=== PATIENT | male | born 1940 | race Caucasian/White ===

== ENCOUNTER 2023-05-27 09:08 | Emergency (ER) | payer OTHER ==
[~2023-05-27] VITALS: Ht 165.1 cm; Wt 59.0 kg
[2023-05-27 10:01] LABS: BASOPHILS ABSOLUTE AUTO 0.06 K/mm3 (0.00-0.23); BASOPHILS PERCENT AUTO 0 % (0-2); EOSINOPHILS ABSOLUTE AUTO 0.08 K/mm3 (0.00-0.68); EOSINOPHILS PERCENT AUTO 0 % (0-6); Hematocrit 41.2 % (37.0-53.0); Hemoglobin 13.5 g/dL (13.5-17.5); IMMATURE GRAN ABSOLUTE AUTO 0.11 K/mm3 (0.00-0.10); IMMATURE GRAN PERCENT AUTO 1 % (0-1); LYMPHOCYTES ABSOLUTE AUTO 0.79 K/mm3 (0.84-5.20); LYMPHOCYTES PERCENT AUTO 4 % (21-46); MONOCYTES ABSOLUTE AUTO 1.48 K/mm3 (0.16-1.47); MONOCYTES PERCENT AUTO 8 % (4-13); Mean Corpuscular HGB Conc 32.8 g/dL (31.5-36.5); Mean Corpuscular Volume 92 fL (80-100); Mean Platelet Volume 11.7 fL (9.1-12.4); NEUTROPHILS ABSOLUTE AUTO 16.69 K/mm3 (1.96-9.15); NEUTROPHILS PERCENT AUTO 87 % (41-73); Platelet Count 367 K/mm3 (150-400); RDW Coefficient Variation 13.2 % (11.7-14.2); RDW Standard Deviation 44.6 fL (35.1-46.3); White Blood Cell Count 19.21 K/mm3 (4.00-11.30)
[2023-05-27 11:12] LABS: Bun/Creatinine Ratio 22.6 (12.0-20.0); Calcium, Blood 8.8 mg/dL (8.5-10.1); Creatinine, Blood 0.62 mg/dL (0.60-1.20)
[2023-05-27 11:32] LABS: Potassium, Blood 5.5 mmol/L (3.5-5.5)
[2023-05-27 11:36] LABS: International Normalized Ratio 1.17; Prothrombin Time Results 12.2 Sec (9.7-11.5)
[2023-05-27 13:15] VITALS: BP 128/72
== END 2023-05-27 13:38 | disposition short-term general hospital (02) ==
LOC: ER 09:08
PROVIDERS: Student in an Organized Health Care Education/Training Program
DX: S06.5X0A Traumatic subdural hemorrhage without loss of consciousness, initial encounter (principal); S70.01XA Contusion of right hip, initial encounter; E86.0 Dehydration; W01.0XXA Fall on same level from slipping, tripping and stumbling without subsequent striking against object, initial encounter; Z79.82 Long term (current) use of aspirin; Z79.899 Other long term (current) drug therapy; I10 Essential (primary) hypertension; E78.00 Pure hypercholesterolemia, unspecified; Z87.891 Personal history of nicotine dependence
CPT/HCPCS: 70450; 72125; 73502; 80048; 82550; 85025; 85610; 85730; 86850; 86900; 86901; 93005; 93010; 99285-25

== ENCOUNTER 2023-07-06 08:00 | Day surgery (SDC) | payer OTHER | END 2023-07-06 23:59 | disposition home or self-care (01) | LOC: WOUND 08:00 | DX: L89.154 Pressure ulcer of sacral region, stage 4 (principal); L89.100 Pressure ulcer of unspecified part of back, unstageable; S06.5XAD Traumatic subdural hemorrhage with loss of consciousness status unknown, subsequent encounter; I82.432 Acute embolism and thrombosis of left popliteal vein; I82.451 Acute embolism and thrombosis of right peroneal vein; I82.813 Embolism and thrombosis of superficial veins of lower extremities, bilateral | CPT/HCPCS: G0463 ==

== ENCOUNTER 2023-07-21 00:47 | Day surgery (SDC) | payer OTHER, MEDICARE | END 2023-07-21 22:45 | disposition home or self-care (01) | LOC: WOUND 00:47 | DX: L89.102 Pressure ulcer of unspecified part of back, stage 2 (principal); L89.154 Pressure ulcer of sacral region, stage 4; L89.892 Pressure ulcer of other site, stage 2; I82.432 Acute embolism and thrombosis of left popliteal vein; I82.451 Acute embolism and thrombosis of right peroneal vein; I82.813 Embolism and thrombosis of superficial veins of lower extremities, bilateral | CPT/HCPCS: A9270; G0463 ==

== ENCOUNTER 2023-07-28 00:52 | Day surgery (SDC) | payer OTHER | END 2023-07-28 23:09 | disposition home or self-care (01) | LOC: WOUND 00:52 | DX: L89.154 Pressure ulcer of sacral region, stage 4 (principal); L89.102 Pressure ulcer of unspecified part of back, stage 2; L89.892 Pressure ulcer of other site, stage 2; L89.512 Pressure ulcer of right ankle, stage 2; L89.610 Pressure ulcer of right heel, unstageable; S06.5XAD Traumatic subdural hemorrhage with loss of consciousness status unknown, subsequent encounter; I82.432 Acute embolism and thrombosis of left popliteal vein; I82.451 Acute embolism and thrombosis of right peroneal vein; I82.813 Embolism and thrombosis of superficial veins of lower extremities, bilateral | CPT/HCPCS: G0463 ==

== ENCOUNTER 2023-08-18 00:32 | Day surgery (SDC) | payer OTHER | END 2023-08-18 22:44 | disposition home or self-care (01) | LOC: WOUND 00:32 | DX: L89.154 Pressure ulcer of sacral region, stage 4 (principal); L89.102 Pressure ulcer of unspecified part of back, stage 2; L89.893 Pressure ulcer of other site, stage 3; L89.892 Pressure ulcer of other site, stage 2; L89.512 Pressure ulcer of right ankle, stage 2; I82.432 Acute embolism and thrombosis of left popliteal vein; I82.451 Acute embolism and thrombosis of right peroneal vein; I82.813 Embolism and thrombosis of superficial veins of lower extremities, bilateral | CPT/HCPCS: A9270; G0463 ==

== ENCOUNTER 2023-09-01 05:08 | Day surgery (SDC) | payer OTHER | END 2023-09-01 22:37 | disposition home or self-care (01) | LOC: WOUND 05:08 | DX: I82.433 Acute embolism and thrombosis of popliteal vein, bilateral (principal); I82.813 Embolism and thrombosis of superficial veins of lower extremities, bilateral; L89.154 Pressure ulcer of sacral region, stage 4; L89.893 Pressure ulcer of other site, stage 3; L89.512 Pressure ulcer of right ankle, stage 2; L89.620 Pressure ulcer of left heel, unstageable; L89.610 Pressure ulcer of right heel, unstageable | CPT/HCPCS: A9270; G0463 ==

== ENCOUNTER 2023-09-08 03:05 | Day surgery (SDC) | payer OTHER | END 2023-09-08 23:01 | disposition home or self-care (01) | LOC: WOUND | DX: L89.154 Pressure ulcer of sacral region, stage 4 (principal); L89.102 Pressure ulcer of unspecified part of back, stage 2; L89.620 Pressure ulcer of left heel, unstageable; L89.610 Pressure ulcer of right heel, unstageable; S06.5XAD Traumatic subdural hemorrhage with loss of consciousness status unknown, subsequent encounter; I82.432 Acute embolism and thrombosis of left popliteal vein; I82.451 Acute embolism and thrombosis of right peroneal vein; I82.813 Embolism and thrombosis of superficial veins of lower extremities, bilateral | CPT/HCPCS: A9270; G0463 ==

== ENCOUNTER 2023-09-15 05:09 | Day surgery (SDC) | payer OTHER | END 2023-09-15 22:48 | disposition home or self-care (01) | LOC: WOUND 05:09 | DX: L89.154 Pressure ulcer of sacral region, stage 4 (principal); L89.893 Pressure ulcer of other site, stage 3; L89.620 Pressure ulcer of left heel, unstageable; L89.610 Pressure ulcer of right heel, unstageable; I82.432 Acute embolism and thrombosis of left popliteal vein; I82.451 Acute embolism and thrombosis of right peroneal vein; I82.813 Embolism and thrombosis of superficial veins of lower extremities, bilateral | CPT/HCPCS: A9270 ==

== ENCOUNTER 2023-09-22 01:57 | Day surgery (SDC) | payer OTHER | END 2023-09-22 22:45 | disposition home or self-care (01) | LOC: WOUND 01:57 | DX: L89.154 Pressure ulcer of sacral region, stage 4 (principal); L89.894 Pressure ulcer of other site, stage 4; L89.102 Pressure ulcer of unspecified part of back, stage 2; L89.620 Pressure ulcer of left heel, unstageable; L89.610 Pressure ulcer of right heel, unstageable; I82.432 Acute embolism and thrombosis of left popliteal vein; I82.451 Acute embolism and thrombosis of right peroneal vein; I82.813 Embolism and thrombosis of superficial veins of lower extremities, bilateral | CPT/HCPCS: A9270 ==

== ENCOUNTER 2023-10-13 03:52 | Day surgery (SDC) | payer OTHER | END 2023-10-13 22:48 | disposition home or self-care (01) | LOC: WOUND 03:52 | DX: L89.154 Pressure ulcer of sacral region, stage 4 (principal); L89.894 Pressure ulcer of other site, stage 4; L89.102 Pressure ulcer of unspecified part of back, stage 2; L89.620 Pressure ulcer of left heel, unstageable; L89.610 Pressure ulcer of right heel, unstageable; S06.5XAD Traumatic subdural hemorrhage with loss of consciousness status unknown, subsequent encounter; I82.432 Acute embolism and thrombosis of left popliteal vein; I82.451 Acute embolism and thrombosis of right peroneal vein; I82.813 Embolism and thrombosis of superficial veins of lower extremities, bilateral | CPT/HCPCS: G0463 ==

== ENCOUNTER 2023-10-20 03:09 | Day surgery (SDC) | payer OTHER | END 2023-10-20 23:00 | disposition home or self-care (01) | LOC: WOUND 03:09 | DX: L89.154 Pressure ulcer of sacral region, stage 4 (principal); I82.813 Embolism and thrombosis of superficial veins of lower extremities, bilateral; L89.894 Pressure ulcer of other site, stage 4; L89.620 Pressure ulcer of left heel, unstageable; L89.610 Pressure ulcer of right heel, unstageable; I82.432 Acute embolism and thrombosis of left popliteal vein; I82.451 Acute embolism and thrombosis of right peroneal vein; S06.5XAD Traumatic subdural hemorrhage with loss of consciousness status unknown, subsequent encounter; X58.XXXD Exposure to other specified factors, subsequent encounter | CPT/HCPCS: G0463 ==

== ENCOUNTER 2023-10-27 04:07 | Day surgery (SDC) | payer OTHER | END 2023-10-27 22:41 | disposition home or self-care (01) | LOC: WOUND 04:07 | DX: L89.154 Pressure ulcer of sacral region, stage 4 (principal); L89.102 Pressure ulcer of unspecified part of back, stage 2; L89.620 Pressure ulcer of left heel, unstageable; L89.610 Pressure ulcer of right heel, unstageable; S06.5XAD Traumatic subdural hemorrhage with loss of consciousness status unknown, subsequent encounter; I82.432 Acute embolism and thrombosis of left popliteal vein; I82.451 Acute embolism and thrombosis of right peroneal vein; I82.813 Embolism and thrombosis of superficial veins of lower extremities, bilateral | CPT/HCPCS: G0463 ==

== ENCOUNTER 2023-11-03 03:13 | Day surgery (SDC) | payer OTHER | END 2023-11-03 23:46 | disposition home or self-care (01) | LOC: WOUND 03:13 | DX: L89.154 Pressure ulcer of sacral region, stage 4 (principal); L89.894 Pressure ulcer of other site, stage 4; L89.102 Pressure ulcer of unspecified part of back, stage 2; L89.620 Pressure ulcer of left heel, unstageable; L89.610 Pressure ulcer of right heel, unstageable; S06.5XAD Traumatic subdural hemorrhage with loss of consciousness status unknown, subsequent encounter; I82.432 Acute embolism and thrombosis of left popliteal vein; I82.451 Acute embolism and thrombosis of right peroneal vein; I82.813 Embolism and thrombosis of superficial veins of lower extremities, bilateral | CPT/HCPCS: G0463 ==

== ENCOUNTER 2023-11-09 01:05 | Day surgery (SDC) | payer OTHER | END 2023-11-09 22:41 | disposition home or self-care (01) | LOC: WOUND 01:05 | DX: L89.154 Pressure ulcer of sacral region, stage 4 (principal); L89.102 Pressure ulcer of unspecified part of back, stage 2; L89.620 Pressure ulcer of left heel, unstageable; L89.610 Pressure ulcer of right heel, unstageable; I82.432 Acute embolism and thrombosis of left popliteal vein; I82.451 Acute embolism and thrombosis of right peroneal vein; I82.813 Embolism and thrombosis of superficial veins of lower extremities, bilateral | CPT/HCPCS: G0463 ==

== ENCOUNTER 2023-12-01 01:30 | Day surgery (SDC) | payer OTHER | END 2023-12-01 22:47 | disposition home or self-care (01) | LOC: WOUND 01:30 | DX: I82.453 Acute embolism and thrombosis of peroneal vein, bilateral (principal); L89.894 Pressure ulcer of other site, stage 4; L89.154 Pressure ulcer of sacral region, stage 4; L89.102 Pressure ulcer of unspecified part of back, stage 2; L89.620 Pressure ulcer of left heel, unstageable; L89.610 Pressure ulcer of right heel, unstageable; S06.5XAD Traumatic subdural hemorrhage with loss of consciousness status unknown, subsequent encounter; X58.XXXD Exposure to other specified factors, subsequent encounter | CPT/HCPCS: G0463 ==

== ENCOUNTER 2023-12-08 04:06 | Day surgery (SDC) | payer OTHER | END 2023-12-08 23:18 | disposition home or self-care (01) | LOC: WOUND 04:06 | DX: L89.624 Pressure ulcer of left heel, stage 4 (principal); L89.154 Pressure ulcer of sacral region, stage 4; L89.610 Pressure ulcer of right heel, unstageable; S06.5XAD Traumatic subdural hemorrhage with loss of consciousness status unknown, subsequent encounter; I82.432 Acute embolism and thrombosis of left popliteal vein; I82.813 Embolism and thrombosis of superficial veins of lower extremities, bilateral; I82.451 Acute embolism and thrombosis of right peroneal vein | CPT/HCPCS: G0463 ==

== ENCOUNTER 2023-12-15 01:32 | Day surgery (SDC) | payer OTHER | END 2023-12-15 22:42 | disposition home or self-care (01) | LOC: WOUND 01:32 | DX: L89.154 Pressure ulcer of sacral region, stage 4 (principal); L89.624 Pressure ulcer of left heel, stage 4; L89.610 Pressure ulcer of right heel, unstageable; S06.5XAD Traumatic subdural hemorrhage with loss of consciousness status unknown, subsequent encounter; I82.432 Acute embolism and thrombosis of left popliteal vein; I82.451 Acute embolism and thrombosis of right peroneal vein; I82.813 Embolism and thrombosis of superficial veins of lower extremities, bilateral; X58.XXXD Exposure to other specified factors, subsequent encounter | CPT/HCPCS: G0463 ==

== ENCOUNTER 2023-12-22 00:41 | Day surgery (SDC) | payer OTHER | END 2023-12-22 22:55 | disposition home or self-care (01) | LOC: WOUND 00:41 | DX: L89.894 Pressure ulcer of other site, stage 4 (principal); L89.154 Pressure ulcer of sacral region, stage 4; L89.624 Pressure ulcer of left heel, stage 4; S06.5XAD Traumatic subdural hemorrhage with loss of consciousness status unknown, subsequent encounter; I82.432 Acute embolism and thrombosis of left popliteal vein; I82.451 Acute embolism and thrombosis of right peroneal vein; I82.813 Embolism and thrombosis of superficial veins of lower extremities, bilateral | CPT/HCPCS: G0463 ==

== ENCOUNTER 2023-12-29 02:01 | Day surgery (SDC) | payer OTHER | END 2023-12-29 22:57 | disposition home or self-care (01) | LOC: WOUND 02:01 | DX: I82.432 Acute embolism and thrombosis of left popliteal vein (principal); I82.451 Acute embolism and thrombosis of right peroneal vein; I82.813 Embolism and thrombosis of superficial veins of lower extremities, bilateral; L89.894 Pressure ulcer of other site, stage 4; L89.624 Pressure ulcer of left heel, stage 4; L89.610 Pressure ulcer of right heel, unstageable; S06.5XAD Traumatic subdural hemorrhage with loss of consciousness status unknown, subsequent encounter | CPT/HCPCS: A6214; G0463 ==

== ENCOUNTER 2024-03-15 04:10 | Day surgery (SDC) | payer OTHER ==
[~2024-03-15 04:10] MED LIST: ACET500 PO; ASCO500 PO; ATOR20 PO; BISA10S PR; DICLOFENAC SODIUM 1%; LOPERAMIDE212 PO; MIRALAX17 GM PO
[2024-03-16] MEDS ORDERED: ALEVE ARTHRITI100 GM TOP (02:28)
[2024-03-16] MEDS ORDERED: FISH OIL 1,0001 EA10 PO (16:46)
[2024-03-16] MEDS ORDERED: MELATONIN PO (16:48)
[2024-03-16] MEDS ORDERED: MULVITA PO (16:49)
[2024-03-16] MEDS ORDERED: PROSOURCE ZAC PO (16:50)
[2024-03-16] MEDS ORDERED: FT SENNA-S 8.61 EACH PO (16:54)
[2024-03-16] MEDS ORDERED: ZINC50 M3 PO (16:56)
[2024-03-16] MEDS ORDERED: ACET325 PO (16:57)
[2024-03-16] MEDS ORDERED: [UNRECOGNIZED DRUG - OTHER] PO (17:16)
[2024-03-16] MEDS ORDERED: SIM PO (17:16)
[2024-03-16] MEDS ORDERED: VITAMIN D31000 UNI1 PO (17:32)
[2024-03-16] MEDS ORDERED: ONDA4 PO (17:36)
[2024-03-16] MEDS ORDERED: TRIPLE ANTIBIOT28 GM (17:43)
[2024-03-18] MEDS ORDERED: TAMS.4ER PO (12:16)
== END 2024-03-15 22:55 | disposition home or self-care (01) ==
LOC: WOUND 04:10
DX: L89.624 Pressure ulcer of left heel, stage 4 (principal); L89.610 Pressure ulcer of right heel, unstageable; L98.429 Non-pressure chronic ulcer of back with unspecified severity; L89.152 Pressure ulcer of sacral region, stage 2
CPT/HCPCS: A6213; A6214; G0463

== ENCOUNTER 2024-03-24 14:14 | Emergency (ER) | payer OTHER ==
[~2024-03-24] VITALS: Ht 175.3 cm; Wt 74.4 kg
[~2024-03-24 14:14] MED LIST changes: +ACET325 PO; +ALEVE ARTHRITI100 GM TOP; +FISH OIL 1,0001 EA10 PO; +FT SENNA-S 8.61 EACH PO; +MELATONIN PO; +MULVITA PO; +ONDA4 PO; +PROSOURCE ZAC PO; +SIM PO; +TAMS.4ER PO; +TRIPLE ANTIBIOT28 GM; +VITAMIN D31000 UNI1 PO; +ZINC50 M3 PO; +[UNRECOGNIZED DRUG - OTHER] PO
[2024-03-24 16:10] VITALS: BP 120/72
== END 2024-03-24 16:19 | disposition home or self-care (01) ==
LOC: ER 14:14
DX: Z46.6 Encounter for fitting and adjustment of urinary device (principal); R39.198 Other difficulties with micturition; I10 Essential (primary) hypertension; E78.5 Hyperlipidemia, unspecified; J43.9 Emphysema, unspecified; F03.90 Unspecified dementia, unspecified severity, without behavioral disturbance, psychotic disturbance, mood disturbance, and anxiety; Z88.8 Allergy status to other drugs, medicaments and biological substances; Z79.899 Other long term (current) drug therapy; Z87.891 Personal history of nicotine dependence
CPT/HCPCS: 51798

== ENCOUNTER 2024-04-30 13:50 | Inpatient (IN) | payer OTHER ==
[~2024-04-30] VITALS: Ht 180.3 cm; Wt 77.1 kg
[~2024-04-30 13:50] MED LIST changes: -MELATONIN PO; +MELATONIN1 M1 PO; -TRIPLE ANTIBIOT28 GM; +TRIPLE ANTIBIOT28 GM TOP
[2024-04-30] MEDS ORDERED: NS 1,000 ML IV SCH ×2 (14:00→17:35)
[2024-04-30 14:21] LABS: BASOPHILS ABSOLUTE AUTO 0.04 K/mm3 (0.00-0.23); BASOPHILS PERCENT AUTO 0 % (0-2); EOSINOPHILS ABSOLUTE AUTO 0.08 K/mm3 (0.00-0.68); EOSINOPHILS PERCENT AUTO 0 % (0-6); Hematocrit 33.7 % (37.0-53.0); Hemoglobin 10.5 g/dL (13.5-17.5); IMMATURE GRAN ABSOLUTE AUTO 0.23 K/mm3 (0.00-0.10); IMMATURE GRAN PERCENT AUTO 1 % (0-1); LYMPHOCYTES ABSOLUTE AUTO 0.66 K/mm3 (0.84-5.20); LYMPHOCYTES PERCENT AUTO 3 % (21-46); MONOCYTES ABSOLUTE AUTO 1.13 K/mm3 (0.16-1.47); MONOCYTES PERCENT AUTO 6 % (4-13); Mean Corpuscular HGB 26.1 pg (26.0-34.0); Mean Corpuscular HGB Conc 31.2 g/dL (31.5-36.5); Mean Corpuscular Volume 84 fL (80-100); Mean Platelet Volume 9.8 fL (9.1-12.4); NEUTROPHILS ABSOLUTE AUTO 17.01 K/mm3 (1.96-9.15); NEUTROPHILS PERCENT AUTO 89 % (41-73); Platelet Count 437 K/mm3 (150-400); RDW Coefficient Variation 15.2 % (11.7-14.2); RDW Standard Deviation 46.2 fL (35.1-46.3); Red Blood Cell Count 4.02 M/mm3 (4.30-5.90); White Blood Cell Count 19.15 K/mm3 (4.00-11.30)
[2024-04-30 14:43] LABS: Albumin, Blood 2.3 g/dL (3.4-5.0); Albumin/Globulin Ratio 0.4 (0.8-1.8); Bilirubin, Total 0.5 mg/dL (0.1-1.0); Bun/Creatinine Ratio 32.1 (12.0-20.0); Calcium, Blood 9.4 mg/dL (8.5-10.1); Creatinine, Blood 0.56 mg/dL (0.60-1.20); Globulin, Blood 5.6 g/dL (2.2-4.0); Potassium, Blood 4.1 mmol/L (3.5-5.5); Total Protein, Blood 7.9 g/dL (6.4-8.2)
[2024-04-30] MEDS ORDERED: CefTRIAXone Sodium 1,000 MG in NS 100 ML IV ONE (15:40)
[2024-04-30 15:42] LABS: Influenza A, PCR NEGATIVE (NEGATIVE); Influenza B, PCR NEGATIVE (NEGATIVE); Resp Syncytial Virus, PCR NEGATIVE (NEGATIVE); SARS-Cov-2 (COVID-19) PCR, MMC NEGATIVE (NEGATIVE)
[2024-04-30] MEDS ORDERED: Azithromycin 500 MG in NS 250 ML IV ONE (16:10)
[2024-04-30] MEDS ORDERED: Ondansetron HCl 2 MG / ML 2ML Vial IV PRN (17:35)
[2024-04-30] MEDS ORDERED: Acetaminophen 325 MG TABLET PO PRN (17:35)
[2024-04-30 19:46] VITALS: BP 120/65
--- NOTE | 2024-04-30 20:18 | NUR ---
ADMIT NOTE 83 YR OLD MALE ADMITTED TO FLOOR FROM THE ED WITH DX OF COMMUNITY ACQUIRED PNA ON DAY SHIFT. NS BOLUS INFUSED THAT STARTED IN THE ED. TEMP:102. TYLENOL ADMIN AND ICE PACKS TO BILAT AX[facility]A. SOMEWHAT CONFUSED BUT KNOWS NAME AND . AM RN REPORTED PT ON CAMERA FOR SAFETY. CAMERA PLACED IN ROOM. CALL LIGHT IN REACH. BED ALARM ON, RAILS UP X 2 FOR SAFET. WILL CONT TO MONITOR
--- NOTE | 2024-04-30 20:55 | NUR ---
THIS RN PROVIDING BREAK COVERAGE FOR PRIMARY RN.
[2024-04-30] MEDS ORDERED: Lactobacil 2-S.Thermo-Bifido 1 1 Cap PO SCH (21:00)
[2024-04-30] MEDS ORDERED: GuaiFENesin 600 MG TabCR PO SCH (21:00)
--- NOTE | 2024-04-30 21:27 | NUR ---
FOLLOW UP TEMP 99.4, MED EFFECTIVE. WILL CONT TO MONITOR
[2024-05-01 02:39] VITALS: BP 98/54
[2024-05-01 02:42] VITALS: BP 98/59
--- NOTE | 2024-05-01 04:18 | NUR ---
SPECIALIST ICU SUMMARY WAS ADMITTED AROUND SHIFT START WITH DX OF COMMUNITY ACQUIRED PNA. TEMP WAS 102, RECEIVED TYLENOL PO AND ICE PACKS TO AXILLA, PROCEDURES EFFECTIVE, TEMP DROPPED TO 98.2 LAST TAKEN. CONFUSED AND EASILY DISTRACTED. PLACED ON CAMERA FOR MONITORING. INCONT OF URINE AND CHANGED. REPOSITIONED IN BED INTERMITTENTLY - SEE DOCUMENTATION FOR DETAILS. HAS BEEN RESTING QUIETLY WITH FEW INTERRUPTIONS. LUNG SOUNDS DIMINISHED. HOB ELEVATED. CALL LIGHT IN REACH, RAILS UP X 2, BED ALAARM ON AND BED IN LOW POSITION FOR SAFETY. WILL CONT TO MONITOR.
[2024-05-01 05:07] LABS: BASOPHILS ABSOLUTE AUTO 0.05 K/mm3 (0.00-0.23); BASOPHILS PERCENT AUTO 0 % (0-2); EOSINOPHILS ABSOLUTE AUTO 0.19 K/mm3 (0.00-0.68); EOSINOPHILS PERCENT AUTO 1 % (0-6); Hemoglobin 9.7 g/dL (13.5-17.5); IMMATURE GRAN ABSOLUTE AUTO 0.13 K/mm3 (0.00-0.10); IMMATURE GRAN PERCENT AUTO 1 % (0-1); LYMPHOCYTES ABSOLUTE AUTO 0.81 K/mm3 (0.84-5.20); LYMPHOCYTES PERCENT AUTO 6 % (21-46); MONOCYTES ABSOLUTE AUTO 1.03 K/mm3 (0.16-1.47); MONOCYTES PERCENT AUTO 7 % (4-13); Mean Corpuscular HGB 26.4 pg (26.0-34.0); Mean Corpuscular HGB Conc 31.3 g/dL (31.5-36.5); Mean Corpuscular Volume 85 fL (80-100); Mean Platelet Volume 9.9 fL (9.1-12.4); NEUTROPHILS ABSOLUTE AUTO 11.62 K/mm3 (1.96-9.15); NEUTROPHILS PERCENT AUTO 84 % (41-73); Platelet Count 377 K/mm3 (150-400); RDW Coefficient Variation 15.2 % (11.7-14.2); RDW Standard Deviation 46.4 fL (35.1-46.3); Red Blood Cell Count 3.67 M/mm3 (4.30-5.90); White Blood Cell Count 13.83 K/mm3 (4.00-11.30)
[2024-05-01 05:34] LABS: Bun/Creatinine Ratio 37.1 (12.0-20.0); Calcium, Blood 8.8 mg/dL (8.5-10.1); Creatinine, Blood 0.43 mg/dL (0.60-1.20); Potassium, Blood 4.1 mmol/L (3.5-5.5)
[2024-05-01 07:40] VITALS: BP 118/62
[2024-05-01] MEDS ORDERED: Tamsulosin HCl 0.4 MG Cap PO SCH (09:00)
[2024-05-01] MEDS ORDERED: Enoxaparin 40 MG/0.4 ML SYR SC SCH (09:00)
[2024-05-01 14:03] VITALS: BP 128/65
[2024-05-01] MEDS ORDERED: CefTRIAXone Sodium 1,000 MG in NS 100 ML IV SCH (16:00)
[2024-05-01] MEDS ORDERED: Azithromycin 500 MG in NS 250 ML IV SCH (18:00)
[2024-05-01 20:01] VITALS: BP 121/66
--- NOTE | 2024-05-02 02:29 | NUR ---
SHIFT SUMMARY NOC PT A/O TO SELF AND . PLEASANTLY CONFUSED AND COOPERATIVE WITH CARE. VSS. NO ACUTE CHANGES TO REPORT. PT HAS VIRTUAL ON AIR DIRECTOR MONITORING IN PLACE FOR ATTEMPTING OOB, AND PULLING AT LINES. PT HAS NOT ATTEMPTED OOB OR PULLED AT LINES DURING SHIFT. PT HAS REMAINED AFEBRILE. PT HAS INFUSION OF NS @ 100 ML/HR RUNNING. PT HAS SLEPT ENTIRETY OF SHIFT, AND HAS BEEN INCONTINENT OF URINE X 2, WELL Q2H TURNING FOR PI PREVENTION. PT CURRENTLY RESTING WITH BED ALARM ON, BED IN LOWEST POSITION, AND CALL LIGHT WITHIN REACH.
[2024-05-02 04:53] VITALS: BP 115/65
[2024-05-02 05:09] LABS: BASOPHILS ABSOLUTE AUTO 0.05 K/mm3 (0.00-0.23); BASOPHILS PERCENT AUTO 0 % (0-2); EOSINOPHILS ABSOLUTE AUTO 0.23 K/mm3 (0.00-0.68); EOSINOPHILS PERCENT AUTO 2 % (0-6); Hematocrit 30.7 % (37.0-53.0); Hemoglobin 9.2 g/dL (13.5-17.5); IMMATURE GRAN ABSOLUTE AUTO 0.14 K/mm3 (0.00-0.10); IMMATURE GRAN PERCENT AUTO 1 % (0-1); LYMPHOCYTES ABSOLUTE AUTO 1.04 K/mm3 (0.84-5.20); LYMPHOCYTES PERCENT AUTO 9 % (21-46); MONOCYTES ABSOLUTE AUTO 1.19 K/mm3 (0.16-1.47); MONOCYTES PERCENT AUTO 10 % (4-13); Mean Corpuscular HGB 25.4 pg (26.0-34.0); Mean Corpuscular Volume 85 fL (80-100); Mean Platelet Volume 9.7 fL (9.1-12.4); NEUTROPHILS PERCENT AUTO 78 % (41-73); Platelet Count 368 K/mm3 (150-400); RDW Coefficient Variation 15.2 % (11.7-14.2); RDW Standard Deviation 47.4 fL (35.1-46.3); Red Blood Cell Count 3.62 M/mm3 (4.30-5.90); White Blood Cell Count 11.95 K/mm3 (4.00-11.30)
[2024-05-02 05:37] LABS: Bun/Creatinine Ratio 30.2 (12.0-20.0); Calcium, Blood 8.7 mg/dL (8.5-10.1); Creatinine, Blood 0.43 mg/dL (0.60-1.20); Potassium, Blood 4.1 mmol/L (3.5-5.5)
[2024-05-02 07:24] VITALS: BP 112/65
[2024-05-02] MEDS ORDERED: CefTRIAXone Sodium 2,000 MG in NS 100 ML IV SCH (16:00)
--- NOTE | 2024-05-02 18:09 | NUR ---
SHIFT SUMMARY- PT HAS HAD NO ACUTE CHANGE T/O THE SHIFT. HE CONTINUES TO HAVE A WET NONPRODUCTIVE COUGH. SPUTUM SAMPLE ORDERED, UNABLE TO COLLECT THE PT CANT FOLLOW INSTRUCTIONS. PT HAS BEEN TURNED Q2. HE IS ON CAMERA FOR LINE PROTECTION. RAC IV WAS SWITCHED TO RFA IV. PT HAS NOT ATTEMPTED TO PULL AT THE IV SINCE THE CHANGE. HOWEVER THE PT HAS REMOVED HIS O2 SEVERAL TIMES T/O THE DAY WITHOUT THE NOTICE OF THE CAMERA. SATS DROPPED TO 82% AT DINNER TIME, REPLACED O2 AND TURNED UP THE FLOW TO 4.5. CALLED RT AND REQUESTED HIGH FLOW NC, THEY ARE SENDING IT UP NOW.
[2024-05-03] VITALS: BP 116/66
--- NOTE | 2024-05-03 02:56 | NUR ---
HEARD CONTINOUS BIOX ALARM SOUNDING AND PT SPO2 AT 87% MAINTAINING ON 4.5L/HFNC. INCREASED O2 6L AND PT MAINTAINING SPO2 >94%. AUSCULTATED LUNGS AND PT HAS CRACKLES IN ALL MARTI, PT COUGH TOO WEAK TO COUGH UP SECRETIONS. HOSPITALIST NOTIFIED AND ORDERS FOR VBG AND CHEST X RAY ORDERED.
[2024-05-03 03:12] LABS: BASOPHILS ABSOLUTE AUTO 0.05 K/mm3 (0.00-0.23); BASOPHILS PERCENT AUTO 0 % (0-2); EOSINOPHILS ABSOLUTE AUTO 0.27 K/mm3 (0.00-0.68); EOSINOPHILS PERCENT AUTO 2 % (0-6); Hematocrit 31.8 % (37.0-53.0); Hemoglobin 9.8 g/dL (13.5-17.5); IMMATURE GRAN ABSOLUTE AUTO 0.13 K/mm3 (0.00-0.10); IMMATURE GRAN PERCENT AUTO 1 % (0-1); LYMPHOCYTES ABSOLUTE AUTO 0.86 K/mm3 (0.84-5.20); LYMPHOCYTES PERCENT AUTO 6 % (21-46); MONOCYTES ABSOLUTE AUTO 0.87 K/mm3 (0.16-1.47); MONOCYTES PERCENT AUTO 6 % (4-13); Mean Corpuscular HGB Conc 30.8 g/dL (31.5-36.5); Mean Corpuscular Volume 84 fL (80-100); Mean Platelet Volume 9.5 fL (9.1-12.4); NEUTROPHILS PERCENT AUTO 85 % (41-73); Platelet Count 411 K/mm3 (150-400); RDW Coefficient Variation 15.3 % (11.7-14.2); RDW Standard Deviation 46.7 fL (35.1-46.3); Red Blood Cell Count 3.77 M/mm3 (4.30-5.90); White Blood Cell Count 14.38 K/mm3 (4.00-11.30)
[2024-05-03 03:14] LABS: Base Excess Venous 10.1 mmol/L; Bicarbonate Venous 32.7 mmol/L (24.0-30.0); PCO2 Venous 51.7 mmHg (38-42); pH Blood Venous 7.43 (7.34-7.37)
[2024-05-03 03:34] LABS: Bun/Creatinine Ratio 23.4 (12.0-20.0); Calcium, Blood 9.1 mg/dL (8.5-10.1); Creatinine, Blood 0.47 mg/dL (0.60-1.20); Potassium, Blood 4.2 mmol/L (3.5-5.5)
[2024-05-03 04:05] VITALS: BP 121/72
--- NOTE | 2024-05-03 05:23 | NUR ---
SHIFT SUMMARY NOC PT A/O X 2. PLEASANTLY CONFUSED AND COOPERATIVE WITH CARE. VSS. PT LUNG SOUNDS STARTING TO SOUND MORE COARSE WITH CRACKLES. O2 DEMAND AT NIGHT HAS INCREASED TO 6L/HFNC TO MAINTAIN SPO2 >92%. HOSPITALIST NOTIFIED AND ORDER FOR CHEST X RAY AND VBG ORDERED. PT HAS BEEN INCONINENT OF URINE X 3. PT STILL REMAINS AFEBRILE. PT HAS CAMERA IN PLACE FOR SAFETY. PT CURRENTLY RESTING WITH BED ALARM ON, BED IN LOWEST POSITION, AND CALL LIGHT WITHIN REACH.
[2024-05-03 07:32] VITALS: BP 120/70
[2024-05-03] MEDS ORDERED: Cefepime HCl 1,000 MG in NS 100 ML IV SCH (08:30)
[2024-05-03 11:09] LABS: Source, Urine Straight Cath
[2024-05-03 11:13] LABS: Appearance, Urine Clear (Clear); Bilirubin, Urine Neg (Neg); Blood, Urine 4+ (Neg); Color, Urine Yellow (P-Yellow); Glucose Qualitative, Urine Neg (Neg); Ketones, Urine Neg (Neg); Leukocyte Esterase, Urine Neg (Neg); Nitrite, Urine Neg (Neg); Protein, Urine Neg (Neg); Specific Gravity, Urine 1.025 (1.003-1.022); Urobilinogen, Urine NORM (Normal)
[2024-05-03 11:27] LABS: White Blood Cells, Urine 0-2 /hpf (0-5)
[2024-05-03 11:28] LABS: Amorphous Light (0-Heavy); Bacteria Rare /hpf; Red Blood Cells, Urine 25-50 /hpf (0-2); Squamous Epithelial Cells Rare /hpf (Few)
[2024-05-03 15:04] VITALS: BP 121/73
[2024-05-03 19:20] VITALS: BP 115/63
--- NOTE | 2024-05-03 20:03 | NUR ---
SHIFT SUMMARY- PT HAS REMAINED ON 6L VIA HIGH FLOW NC. UA COLLECTED WITH STRAIGHT CATH. ORDER RECIEVED FOR SPUTUM CULTURE VIA SUCTION. CALLED RT ABOUT COLLECTING A SAMPLE THAT WAS, PER RT THAT REQUIRES AN ORDER FOR NT SUCTION. CALLED DR TITUS TO CLARIFY ORDER. ORDER DC'D SHE DOES NOT WANT TO GO THAT INVASIVE. PT SITTING UP IN BED, CALL LIGHT IN REACH NO S&S OF DISTRESS NOTED. REQUESTED THE PT NOT RECIEVE ANY LAXITIVES HE HAS HAD THREE SEEDY, PASTY AND LIQUID STOOLS TODAY, LARGE IN SIZE. PT REMAINS ON CAMERA, BUT IT MAY NO LONGER BE NEEDED HE IS NOT PULLING AT HIS IV ANYMORE.
[2024-05-03] MEDS ORDERED: NS 250 ML IV PRN (23:40)
[2024-05-04 03:00] VITALS: BP 106/68
[2024-05-04 05:32] LABS: BASOPHILS ABSOLUTE AUTO 0.02 K/mm3 (0.00-0.23); BASOPHILS PERCENT AUTO 0 % (0-2); EOSINOPHILS ABSOLUTE AUTO 0.11 K/mm3 (0.00-0.68); EOSINOPHILS PERCENT AUTO 1 % (0-6); Hematocrit 34.2 % (37.0-53.0); Hemoglobin 10.1 g/dL (13.5-17.5); IMMATURE GRAN PERCENT AUTO 1 % (0-1); LYMPHOCYTES ABSOLUTE AUTO 0.68 K/mm3 (0.84-5.20); LYMPHOCYTES PERCENT AUTO 7 % (21-46); MONOCYTES ABSOLUTE AUTO 0.66 K/mm3 (0.16-1.47); MONOCYTES PERCENT AUTO 7 % (4-13); Mean Corpuscular HGB 25.4 pg (26.0-34.0); Mean Corpuscular HGB Conc 29.5 g/dL (31.5-36.5); Mean Corpuscular Volume 86 fL (80-100); Mean Platelet Volume 9.7 fL (9.1-12.4); NEUTROPHILS ABSOLUTE AUTO 8.08 K/mm3 (1.96-9.15); NEUTROPHILS PERCENT AUTO 84 % (41-73); Platelet Count 399 K/mm3 (150-400); RDW Coefficient Variation 15.1 % (11.7-14.2); RDW Standard Deviation 47.4 fL (35.1-46.3); Red Blood Cell Count 3.97 M/mm3 (4.30-5.90); White Blood Cell Count 9.65 K/mm3 (4.00-11.30)
--- NOTE | 2024-05-04 05:36 | NUR ---
SHIFT SUMMARY: TMAX 102 AT START OF SHIFT; RE-CHECKED WITH ORAL THERMOMETER, WAS 99.7 BUT PT WAS UNABLE FOLLOW DIRECTION TO KEEP HIS MOUTH CLOSED AROUND THERMOMETER. TYLENOL GIVEN AND PT DEFERVESCED TO 99.4. A&O TO SELF ONLY, VERY [place]. OXYGEN NEEDS VARIED BETWEEN 4-5 L/MIN VIA FACE MASK. DID C/O "DISCOMFORT" IN L HIP, RELIEVED WITH TYELNOL. WAS UNABLE TO TAKE HIS HS MEDICATIONS WITH WATER, HAD TO BE CRUSHED IN APPLESAUCE/PUDDING. SLEPT SOUNDLY ALL NIGHT.
[2024-05-04 06:03] LABS: Bun/Creatinine Ratio 36.5 (12.0-20.0); Calcium, Blood 9.3 mg/dL (8.5-10.1); Creatinine, Blood 0.52 mg/dL (0.60-1.20); Potassium, Blood 4.2 mmol/L (3.5-5.5)
[2024-05-04 07:43] VITALS: BP 123/68
[2024-05-04 15:33] VITALS: BP 112/67
--- NOTE | 2024-05-04 19:25 | NUR ---
SHIFT SUMMARY- PT ALERT TONIGHT, HE WAS ASSISTED WITH DINNER AND IT TOOK THE CUTTER GRINDER OPERATOR 1.5 HOURS TO ASSIST HIM WITH IT, BUT HE ATE 100%. PT IN BED, Q2 TURNS T/O THE DAY WITH CHANGES AT NEARLY THE SAME INTERVALS. PT IS SITTING UP IN BED BEING ASSISTED WITH HIS DINNER AT THE TIME OF REPORT. NO CURRENT S&S OF DISTRESS NOTED. STILL ON 6L VIA HIGH FLOW NC.
[2024-05-04 20:14] VITALS: BP 111/70
[2024-05-05 04:26] VITALS: BP 109/62
--- NOTE | 2024-05-05 05:30 | NUR ---
SHIFT SUMMARY: NO ACUTE EVENTS. O2 @ 4 L/MIN VIA FACE MASK WHILE SLEEPING WITH SATS 92-95%. MORE ALERT AND INTERACTIVE THAN LAST NIGHT. NOT COUGHING, BREATHING SHALLOW. REPOSITIONED [id number], HAD PARTIAL BED BATH. INCONTINENT OF B&B, ATTENDS IN PLACE. WAS TOO SLEEPY TO SAFELY SWALLOW HS MEDICATIONS. HE STATED HE IS LOOKING FORWARD TO GETTING OOB TO CHAIR TODAY.
[2024-05-05 07:41] VITALS: BP 111/64
[2024-05-05] MEDS ORDERED: Bisacodyl 10 MG Supp PR PRN (07:45)
[2024-05-05] MEDS ORDERED: Polyethylene Glycol 3350 17 gm PO PRN (07:45)
[2024-05-05] MEDS ORDERED: Loperamide HCl 2 MG Cap PO PRN (07:45)
[2024-05-05] MEDS ORDERED: Triple Antibiotic Ointment 30 gm TOP PRN (08:20)
[2024-05-05] MEDS ORDERED: Cholecalciferol 1000 Unit Tablet (=25MCG) PO SCH (09:00)
[2024-05-05] MEDS ORDERED: Zinc Sulfate 220 MG Cap (Provides 50MG) PO SCH (09:00)
[2024-05-05] MEDS ORDERED: Multivitamins 1 Tab PO SCH (09:00)
[2024-05-05] MEDS ORDERED: Protein Supplement 30 ML UD PO SCH (09:00)
[2024-05-05] MEDS ORDERED: Docusate Sodium/Senna 1 Tab PO SCH (09:00)
[2024-05-05] MEDS ORDERED: Docosahexanoic Acid/EPA 1,000 MG CAP PO SCH (09:00)
[2024-05-05] MEDS ORDERED: Ascorbic Acid 500 MG Tab PO SCH (09:00)
[2024-05-05 17:14] VITALS: BP 120/68
--- NOTE | 2024-05-05 19:30 | NUR ---
SHIFT SUMMARY- PT WAS SLEEPY T/O THE SHIFT TODAY HE ATE BREAKFAST AND DINNER BUT SLEPT BETWEEN THE TWO MEALS. VSS BUT STAFF HAD TO WORK TO WAKE HIM TO GIVE MEDS. PT IN BED, CALL LIGHT IN REACH NO S&S OF DISTREESS AT THE TIME OF SHIFT CHANGE. HE SEEMS TO BE IMPROVING VERY SLOWLY, DOES NOT CALL FOR ASSISTANCE.
[2024-05-05 20:34] VITALS: BP 118/66
[2024-05-05] MEDS ORDERED: Atorvastatin 10 MG Tab PO SCH (21:00)
[2024-05-05] MEDS ORDERED: Misc. Tablet PO SCH (21:00)
[2024-05-06 02:07] VITALS: BP 115/72
[2024-05-06 05:05] LABS: Hematocrit 35.5 % (37.0-53.0); Hemoglobin 10.2 g/dL (13.5-17.5); Mean Corpuscular HGB 25.3 pg (26.0-34.0); Mean Corpuscular HGB Conc 28.7 g/dL (31.5-36.5); Mean Corpuscular Volume 88 fL (80-100); Platelet Count 430 K/mm3 (150-400); RDW Coefficient Variation 15.1 % (11.7-14.2); Red Blood Cell Count 4.03 M/mm3 (4.30-5.90); White Blood Cell Count 8.02 K/mm3 (4.00-11.30)
[2024-05-06 05:40] LABS: Bun/Creatinine Ratio 64.6 (12.0-20.0); Calcium, Blood 8.9 mg/dL (8.5-10.1); Creatinine, Blood 0.39 mg/dL (0.60-1.20); Potassium, Blood 3.9 mmol/L (3.5-5.5)
--- NOTE | 2024-05-06 06:20 | NUR ---
SHIFT SUMMARY: Pt is admitted for PNA and is a full code. Is alert and able to make some needs known. Has been 2p for ADLs but did not get out of bed this shift. Denies pain or discomfort with nothing noted by staff.
[2024-05-06 08:23] VITALS: BP 126/104
[2024-05-06] MEDS ORDERED: LEVO750 PO (12:03)
[2024-05-06] MEDS ORDERED: GUAI600T33 PO (12:03)
[2024-05-06] MEDS ORDERED: HIGH POTENCY P1 EAC2 PO (12:04)
[2024-05-06 15:52] VITALS: BP 105/63
--- NOTE | 2024-05-06 18:52 | NUR ---
SHIFT SUMMARY PT A&O TO SELF ONLY, VSS, ON 4L O2 NC, UNSUCCESSFUL W/ AMB DUE TO FEARFULNESS, TOLERATING PO, VOIDING, AND DENIED PAIN. PHYSICAL THERAPY WORKED W/ PT, SEE THERAPY NOTE. SPEECH THERAPY REEVALUATED PT AND NEW DIET AND MED PRECAUTIONS ORDERED, SEE SPEECH THERAPY NOTE. CALL LIGHT WITHIN REACH.
[2024-05-06 21:16] VITALS: BP 127/82
[2024-05-07 04:07] VITALS: BP 105/67
--- NOTE | 2024-05-07 06:30 | NUR ---
SHIFT SUMMARY: Pt admitted for encephalopathy and and is a full code. Is alert and able to make needs known. ADLs have been mostly 1p but did not get out of been during shift. On contact ISO for history of MRSA. pain has been managed with prn pain management. Power glide to upper left arm is intact with dressing that is CDI. permacath to upper right chest is intact with dressing that is CDI. Anders reports sinus in the 70s. Was placed on NPO at midnight due to pending surgery at some point today.
--- NOTE | 2024-05-07 06:31 | NUR ---
SHIFT SUMMARY: Pt is admitted for PNA and is a full code. Is alert and able to make some needs known. ADLs have been mostly 2p but did not get out of bed this shift. Denies pain or discomfort when asked. On 4lpm of O2 via NC to maintain SPO2 greater than 90%.
[2024-05-07 07:43] VITALS: BP 112/73
[2024-05-07 15:10] VITALS: BP 120/67
--- NOTE | 2024-05-07 18:05 | NUR ---
SHIFT SUMMARY PT A&O TO SELF ONLY, VSS, ON 4L O2 NC, TOLERATING PO, VOIDING, AND DENIED PAIN. PT DID NOT AMB THIS SHIFT. SPEECH THERAPY WORKED W/ PT, SEE THERAPY NOTE. NO ACUTE CHANGES. PT PLAN TO D/C TOMORROW TO [facility].
[2024-05-07 20:14] VITALS: BP 115/66
[2024-05-08 03:49] VITALS: BP 116/72
--- NOTE | 2024-05-08 04:16 | NUR ---
COTTON GINNER SUMMARY VSS. ALERT TO SELF. COOPERATIVE WITH TREATMENT. HOB ELEVATED AND LUNG SOUNDS PER AUSCULTATION DIMINISHED. ON . TOLERATES MEDS WITH APPLESAUCE. CONDOM CATH PLACED IS INCONT, AND TO PREVENT POSSIBLE BREAK DOWN/MAINTAIN CLEANLINESS. IV ANTIBIOTICS, MEDS ORDERED - SEE MAR FOR DETAILS. HAS BEEN RESTING QUIETLY WITH FEW INTERRUPTIONS. ASSISTED WITH REPOSITIONING FOR COMFORT AND SKIN MAINTENANCE. CALL LIGHT IN REACH, RAILS UP X 2 AND BED IN LOW POSITION FOR SAFETY. WILL CONTINUE TO MONITOR.
[2024-05-08 07:41] VITALS: BP 92/78
--- NOTE | 2024-05-08 14:11 | NUR ---
SHIFT SUMMARY PT DISCHARGED TO [facility] AT 1323. PT A&O TO SELF ONLY, VSS, BEDRIDDEN, TOLERATING PO, VOIDING, AND DENIED PAIN. BELONGINGS WERE RETURNED AND DISCHARGE PACKET GIVEN TO TRANSPORT. [facility]
== END 2024-05-08 13:23 | disposition hospice, home (50) | DRG 871 ==
LOC: ER 13:50 → MEDS 17:30 → ENPENDDIS 05-08 11:00 → MEDS 05-08 13:23
PROVIDERS: Emergency Medicine; Family Medicine; Internal Medicine; Nurse Practitioner Acute Care; Physician Assistant; ADMIT Student in an Organized Health Care Education/Training Program
DX: A41.52 Sepsis due to Pseudomonas (principal); J18.9 Pneumonia, unspecified organism; J96.01 Acute respiratory failure with hypoxia; F03.90 Unspecified dementia, unspecified severity, without behavioral disturbance, psychotic disturbance, mood disturbance, and anxiety; E78.5 Hyperlipidemia, unspecified; I10 Essential (primary) hypertension; Z88.8 Allergy status to other drugs, medicaments and biological substances; D64.9 Anemia, unspecified; H91.90 Unspecified hearing loss, unspecified ear; J43.9 Emphysema, unspecified; K40.90 Unilateral inguinal hernia, without obstruction or gangrene, not specified as recurrent; Z86.718 Personal history of other venous thrombosis and embolism; Z85.46 Personal history of malignant neoplasm of prostate; Z79.899 Other long term (current) drug therapy
CPT/HCPCS: 0241U; 36415; 71045; 71260; 74177; 80048; 80053; 81001; 82803; 83605; 83880; 84145; 85025; 85027; 87040; 87077; 87186; 92526; 92610; 93005; 93010; 93306; 94760; 94761; 94762; 96365; 97110; 97162; 97530; 99285-25; A9270; J0456; J0692; J0696; J1650; J7030; J7050; Q9967